=== PATIENT | male | born 1945 | race Caucasian/White ===

== ENCOUNTER → 2017-10-22 | Outpatient (CLI) | payer MEDICARE | LOC: M RAD 11:10 | DX: M51.36 Other intervertebral disc degeneration, lumbar region (principal) | CPT/HCPCS: 72148 ==

== ENCOUNTER → 2023-11-03 | Outpatient (CLI) | payer MEDICARE ==
[~2023-11-03] MED LIST: COUM1TAB18 PO; MAPA500T17 PO; NAPR500T2 PO; NUCY50TA PO; TRIL45CA PO; ZETIA PO
== END ==
LOC: M RAD 09:36
PROVIDERS: ATTEND Internal Medicine Pulmonary Disease
DX: R91.8 Other nonspecific abnormal finding of lung field (principal); G47.33 Obstructive sleep apnea (adult) (pediatric)
CPT/HCPCS: 71250; G0399

== ENCOUNTER → 2023-11-03 | Outpatient (CLI) | payer MEDICARE | LOC: M SLEEP HO 09:37 | PROVIDERS: ATTEND Internal Medicine Pulmonary Disease | DX: G47.33 Obstructive sleep apnea (adult) (pediatric) (principal) ==

== ENCOUNTER → 2024-01-27 | Outpatient (CLI) | payer MEDICARE | LOC: M SLEEP 20:00 | PROVIDERS: ATTEND Internal Medicine Pulmonary Disease | DX: G47.33 Obstructive sleep apnea (adult) (pediatric) (principal) ==

== ENCOUNTER 2024-05-01 09:32 | Emergency (ER) | payer MEDICARE ==
[~2024-05-01] VITALS: Ht 175.3 cm; Wt 90.1 kg
[2024-05-01] MEDS ORDERED: METF500T13 (09:48)
[2024-05-01] MEDS ORDERED: ROSU20TA86 (09:48)
[2024-05-01] MEDS ORDERED: FARX1TAB3 (09:48)
[2024-05-01] MEDS ORDERED: OXYC-1 PO (09:48)
[2024-05-01] MEDS ORDERED: ENTR1TAB (09:48)
[2024-05-01] MEDS ORDERED: CYCL-707 PO (09:48)
[2024-05-01] MEDS ORDERED: Prevagen (12:09)
[2024-05-01] MEDS ORDERED: Multivitamin (12:09)
[2024-05-01] MEDS ORDERED: TYLE650T38 PO (12:09)
[2024-05-01] MEDS ORDERED: CHOL1CAP11 PO (12:09)
[2024-05-01] MEDS ORDERED: XALA0.007 OP (12:09)
[2024-05-01 12:38] VITALS: BP 115/58; TEMP 97.1; O2SAT 96
== END 2024-05-01 12:46 | disposition home or self-care (01) ==
LOC: M ED 09:32
DX: S22.32XA Fracture of one rib, left side, initial encounter for closed fracture (principal); Y92.019 Unspecified place in single-family (private) house as the place of occurrence of the external cause; Y93.9 Activity, unspecified; Y99.9 Unspecified external cause status; W00.0XXA Fall on same level due to ice and snow, initial encounter; Z88.5 Allergy status to narcotic agent; Z79.1 Long term (current) use of non-steroidal anti-inflammatories (NSAID); Z79.84 Long term (current) use of oral hypoglycemic drugs; Z79.899 Other long term (current) drug therapy

== ENCOUNTER → 2025-02-13 | Outpatient (CLI) | payer MEDICARE ==
[~2025-02-13] MED LIST changes: +CHOL1CAP11 PO; +CYCL-707 PO; +ENTR1TAB; +FARX1TAB3; +METF500T13; +Multivitamin; +OXYC-1 PO; +Prevagen; +ROSU20TA86; +TYLE650T38 PO; +XALA0.007 OP
== END ==
LOC: M RAD 11:23
PROVIDERS: ATTEND Internal Medicine Cardiovascular Disease
DX: Z95.0 Presence of cardiac pacemaker (principal)